=== PATIENT | male | born 1985 | race African-American/Black ===

== ENCOUNTER 2018-11-11 02:34 | Observation (INO) ==
[2018-11-11] MEDS ORDERED: PANTOPRAZOLE 40 MG TABLET PO STA (03:00)
[2018-11-11] MEDS ORDERED: IBUPROFEN 800 MG TABLET PO STA (03:00)
[2018-11-11 04:11] LABS: Barbiturates Screen,Urine Negative (Negative); Benzodiazepines Screen,Urine Negative (Negative); Cannabinoid Screen,Urine Negative (Negative); Opiate Screen,Urine Negative (Negative); Phencyclidine Screen,Urine Negative (Negative)
[2018-11-11] MEDS ORDERED: ACETAMINOPHEN 325 MG TABLET PO PRN (05:16)
[2018-11-11] MEDS ORDERED: ONDANSETRON 4 MG/2 ML VIAL IV PRN (05:16)
[2018-11-11 05:54] LABS: Alanine Aminotransferase 13 U/L (16-61); Albumin 3.9 G/DL (3.4-5.0); Alkaline Phosphatase 61 U/L (45-117); Aspartate Amino Transferase 23 U/L (0-37); Bilirubin,Total < 0.39 MG/DL (0.2-1.0); Blood Urea Nitrogen 8 MG/DL (7-18); Calcium 9.3 MG/DL (8.5-10.1); Glucose 99 MG/DL (74-106); Osmolality,Calculated 276.4 MOS/KG (273-304); Total Protein 7.7 G/DL (6.4-8.3)
[2018-11-11] MEDS ORDERED: NITROGLYCERIN SL 0.4 MG TABLET SL PRN (06:25)
[2018-11-11] MEDS ORDERED: hydrALAZINE 20 MG/1 ML VIAL IV PRN (06:27)
[2018-11-11 06:51] LABS: Risk Ratio 3.59; Thyroid Stimulating Hormone 0.746 uIU/ml (0.358-3.74); VLDL CHOLESTEROL 21.6 MG/DL
[2018-11-11 07:16] LABS: Basophils % 0.6 % (0.0-0.8); Eosinophils # 0.3 10*3/uL (0.0-0.87); Eosinophils % 4.8 % (0.00-10.9); Hematocrit 42.4 VOL% (42.0-52.0); Hemoglobin 13.3 GM/DL (14.0-18.0); Immature Granulocytes % 0.1 %; Immature Granulocytes Absolute 0.01 #; Lymphocytes # 1.9 10*3/uL (1.4-4.0); Lymphocytes % 26.5 % (21.2-54.2); Mean Corpuscular HGB Conc 31.4 GM/DL (32-36); Mean Corpuscular Volume 91.6 FL (87-102); Mean Platelet Volume 9.5 FL (9.6-12.0); Monocytes % 6.7 % (1.7-12.7); Neutrophils % 61.3 % (38.7-73.9); Platelet Count 234 T/CUMM (130-400); Red Blood Count 4.63 MC/CUMM (3.8-5.5); Red Cell Distribution Width 11.9 % (9.3-17.3); White Blood Count 7.1 T/CUMM (4-12)
[2018-11-11 09:22] LABS: Apearance,Urine CLEAR (Clear); Bilirubin,Urine Negative (Negative); Blood, Urine Negative (Negative); Glucose,Urine (UA) Negative (Negative); Ketones,Urine Negative (Negative); Mucus,Urine Occasional /LPF (Occasional); Nitrite,Urine Negative (Negative); Protein,Urine Negative; RBC,Urine <1 /HPF (0-4); Squamous Epithelial Cell,Urine Occasional /HPF (0-10); Urine Color Yellow (Yellow); Urine Specific Gravity 1.018 (1.001-1.035); WBC,Urine <1 /HPF (0-6)
[2018-11-11] MEDS: ASPIRIN EC 325 MG TABLET PO SCH (09:34)
[2018-11-11] MEDS: ENOXAPARIN 80 MG/0.8 ML SYRINGE SUBCUT SCH ×2 (09:34→21:21)
[2018-11-11] MEDS: PANTOPRAZOLE 40 MG TABLET PO SCH (09:34)
[2018-11-11] MEDS: ROSUVASTATIN 20 MG TABLET PO SCH (09:35)
[2018-11-11 10:11] LABS: CKMB % 3.2 %
[2018-11-11 10:12] LABS: Troponin I 1.01 NG/ML (0.00-0.045)
[2018-11-11 12:07] LABS: HIV Antigen/Antibody Result Nonreactive (Nonreactive)
[2018-11-11 12:48] LABS: Hepatitis B Core IgM Quant 0.06 Index; Hepatitis B Surface Ag Quant 0.16 Index; Hepatitis B Surface Ag Result Negative (Negative); Hepatitis C Virus Ab Quant 0.05 Index; Hepatitis C Virus Ab Result Negative (Negative)
[2018-11-11] MEDS ORDERED: traMADol 50 MG TABLET PO ONE (15:43)
[2018-11-11 16:15] LABS: CKMB % 4.1 %
[2018-11-11 17:15] LABS: Troponin I 2.47 NG/ML (0.00-0.045)
[2018-11-11] MEDS ORDERED: NITROGLYCERIN 2% OINT 1 INCH/GM PACK TOP SCH (18:00)
[2018-11-11] MEDS: NITROGLYCERIN 2% OINT 1 INCH/GM PACK TOP SCH ×2 (18:04→23:47)
[2018-11-11] MEDS: CARVEDILOL 3.125 MG TABLET PO SCH (21:21)
[2018-11-12 04:34] LABS: Basophils % 0.4 % (0.0-0.8); Eosinophils # 0.3 10*3/uL (0.0-0.87); Eosinophils % 5.1 % (0.00-10.9); Hemoglobin 12.3 GM/DL (14.0-18.0); Immature Granulocytes % 0.5 %; Immature Granulocytes Absolute 0.03 #; Lymphocytes # 2.2 10*3/uL (1.4-4.0); Lymphocytes % 39.8 % (21.2-54.2); Mean Corpuscular HGB Conc 31.5 GM/DL (32-36); Mean Corpuscular Volume 90.9 FL (87-102); Mean Platelet Volume 9.6 FL (9.6-12.0); Monocytes % 7.7 % (1.7-12.7); Neutrophils % 46.5 % (38.7-73.9); Platelet Count 234 T/CUMM (130-400); Red Blood Count 4.29 MC/CUMM (3.8-5.5); Red Cell Distribution Width 11.8 % (9.3-17.3); White Blood Count 5.5 T/CUMM (4-12)
[2018-11-12 05:03] LABS: Calcium 8.5 MG/DL (8.5-10.1); Osmolality,Calculated 278.3 MOS/KG (273-304)
[2018-11-12] MEDS: NITROGLYCERIN 2% OINT 1 INCH/GM PACK TOP SCH ×2 (06:04→13:10)
[2018-11-12] MEDS ORDERED: MAGNESIUM SULF RIDER 2 GM in PREMIX 1 EACH IV PRN (08:16)
[2018-11-12] MEDS ORDERED: POTASSIUM CHLORIDE RIDER 10 MEQ in PREMIX 1 EACH IV PRN (08:16)
[2018-11-12] MEDS ORDERED: DIAZEPAM 5 MG TABLET PO ONE (08:16)
[2018-11-12] MEDS ORDERED: diphenhydrAMINE CAP 25 MG CAPSULE PO ONE (08:16)
[2018-11-12] MEDS ORDERED: SODIUM CHLORIDE 0.9% 1,000 ML IV SCH (08:30)
[2018-11-12] MEDS: CARVEDILOL 3.125 MG TABLET PO SCH (08:53)
[2018-11-12] MEDS: ENOXAPARIN 80 MG/0.8 ML SYRINGE SUBCUT SCH (08:53)
[2018-11-12] MEDS: ASPIRIN EC 325 MG TABLET PO SCH (08:53)
[2018-11-12] MEDS: PANTOPRAZOLE 40 MG TABLET PO SCH (08:54)
[2018-11-12] MEDS: ROSUVASTATIN 20 MG TABLET PO SCH (08:54)
[2018-11-12] MEDS ORDERED: LIDOCAINE 1% 20 ML VIAL ONE (11:30)
[2018-11-12] MEDS ORDERED: HEPARIN/NACL 0.9% 2 UNITS/ML 1,000 ML IV ONE (11:30)
[2018-11-12] MEDS ORDERED: NITROGLYCERIN DRIP 50 MG/250 ML BOTTLE IV ONE (12:16)
[2018-11-12] MEDS ORDERED: MIDAZOLAM 2 MG/2 ML VIAL ONE (12:16)
[2018-11-12] MEDS ORDERED: VERAPAMIL 5 MG/2 ML VIAL ONE (12:16)
[2018-11-12] MEDS ORDERED: HYDROmorphone 2 MG/1 ML VIAL ONE (12:16)
[2018-11-12 17:19] VITALS: BP 111/69
== END 2018-11-12 17:20 | disposition home or self-care (01) ==
LOC: N.EDINP 02:34 → N.ED 02:34 → N.2E 05:59
PROVIDERS: ADMIT Internal Medicine; ATTEND Internal Medicine